=== PATIENT | female | born 2000 | race Caucasian/White ===

== ENCOUNTER 2021-06-22 12:01 | Emergency (ER) | payer OTHER ==
[~2021-06-22] VITALS: Ht 157.5 cm; Wt 83.9 kg
[2021-06-22] MEDS ORDERED: LITHIUM CARBON300 M3 PO (12:33)
[2021-06-22] MEDS ORDERED: ZIPRASIDONE HCL60 MG PO (12:33)
[2021-06-22] MEDS ORDERED: TRAZODONE HCL100 MG PO (12:34)
[2021-06-22] MEDS ORDERED: HYDROCODON-ACE1 EAC7 PO (14:00)
[2021-06-22 14:15] VITALS: BP 118/69
== END 2021-06-22 14:16 | disposition home or self-care (01) ==
LOC: M.ERS 12:01
DX: S86.812A Strain of other muscle(s) and tendon(s) at lower leg level, left leg, initial encounter (principal); Z79.899 Other long term (current) drug therapy; W19.XXXA Unspecified fall, initial encounter; Y93.89 Activity, other specified; Y92.89 Other specified places as the place of occurrence of the external cause; Y99.8 Other external cause status